=== PATIENT | male | born 1965 | race American Indian/Alaskan Native ===

== ENCOUNTER 2018-11-01 14:39 | Outpatient (CLI) | payer OTHER ==
--- NOTE | 2018-11-01 15:52 | XRay Report ---
ABDOMEN TWO VIEWS: 11/01/18 15:12 CLINICAL: Abdominal pain. COMPARISON:None. FINDINGS: Supine upright views demonstrate a normal bowel gas pattern with moderate stool in the right colon. No distended bowel and no air-fluid levels. No suspicious abdominal calcifications. Several left pelvic calcifications are probably phleboliths but a distal ureteral calculus cannot be excluded. This The bones and soft tissues are normal. IMPRESSION: Negative abdomen. Recommend CT abdomen and pelvis with stone protocol if clinically suspect ureteral calculus.
--- NOTE | 2018-11-01 15:54 | XRay Report ---
XRAY LEFT SHOULDER THREE VIEWS: 11/01/18 14:39:00 CLINICAL: Pain FINDINGS: No fracture or dislocation. Normal glenohumeral joint. Normal AC joint. No bone lesion. The soft tissues are normal. IMPRESSION: Normal.
== END 2018-11-01 14:40 | disposition home or self-care (01) ==
LOC: XRAY 14:39
PROVIDERS: ATTEND Family Medicine
DX: M25.512 Pain in left shoulder (principal); R10.9 Unspecified abdominal pain
CPT/HCPCS: 74019

== ENCOUNTER 2019-04-30 13:42 | Emergency (ER) | payer OTHER ==
[2019-04-30 14:10] VITALS: BP 141/83
--- NOTE | 2019-04-30 14:12 | Emergency Department Report ---
Blank Doc - Documentation Documentation: 54 y o male presents with upper abd pain non radiating x 2 days admits nausea and diarrhea ua,labs
[2019-04-30] MEDS ORDERED: ZOFRAN IV ONE (14:39)
[2019-04-30] MEDS ORDERED: PEPCID IV ONE (14:39)
[2019-04-30] MEDS ORDERED: NACL 0.9% 1000 ML 1,000 ML IV ONE (14:39)
[2019-04-30 14:59] LABS: Basophils # (Auto) 0.1 K/mm3 (0.0-0.1); Basophils % (Auto) 0.8 % (0.0-1.8); Eosinophils # (Auto) 0.3 K/mm3 (0.0-0.4); Eosinophils % (Auto) 4.1 % (0.0-4.3); Hemoglobin 14.2 gm/dl (11.8-15.2); Lymphocytes # (Auto) 2.1 K/mm3 (1.2-5.4); Lymphocytes % (Auto) 28.2 % (13.4-35.0); Mean Corpuscular HGB Conc 34 % (32-34); Mean Corpuscular Volume 92 fl (84-94); Monocytes # (Auto) 0.7 K/mm3 (0.0-0.8); Platelet Count 243 K/mm3 (140-440); Red Blood Count 4.59 M/mm3 (3.65-5.03); Red Cell Distribution Width 14.2 % (13.2-15.2)
[2019-04-30 15:26] LABS: Bilirubin,Urine NEG (Negative); Blood,Urine NEG (Negative); Color,Urine Yellow (Yellow); Mucus,Urine FEW /HPF; Protein,Urine <15 mg/dL mg/dL (Negative); Urobilinogen,Urine < 2.0 mg/dL (<2.0); WBC,Urine < 1.0 /HPF (0.0-6.0)
[2019-04-30 15:52] LABS: BUN/Creatinine Ratio 14; Blood Urea Nitrogen 14 mg/dL (9-20); Calcium 8.5 mg/dL (8.4-10.2); Hemolysis Index 24
--- NOTE | 2019-04-30 16:34 | Emergency Department Report ---
Vomiting/Diarrhea - HPI Chief Complaint: Abdominal Pain Stated Complaint: ABDOMINAL PAIN/NAUSEA Time Seen by Provider: 04/30/19 14:10 Duration: 2 Days Severity: moderate Nausea/Vomiting Severity: Mild Diarrhea Severity: Severe (approx 8 times today) Pain Location: Epigastric Pain Severity: Mild Symptoms: Yes Watery Diarrhea, Yes Able to Tolerate Fluids, No Bloody diarrhea, No Fever, No Recent Untreated Water, No Recent use of Antibiotics, No Family w/ Similar Symptoms, No Contacts w/ Similar Symptoms, No Rash, No Hematuria, No Recent URI Symptoms Other History: mild dizziness with standing ED Review of Systems ROS: Stated complaint: ABDOMINAL PAIN/NAUSEA Other details as noted in HPI Comment: All other systems reviewed and negative ED Past Medical Hx - Past Medical History Previous Medical History?: Yes Additional medical history: high cholesterol - Surgical History Past Surgical History?: No - Social History Smoking Status: Never Smoker Substance Use Type: None - Medications Home Medications: Home Medications Medication Instructions Recorded Confirmed Last Taken Type Dicyclomine [Bentyl] 20 mg PO QID #10 tablet 04/30/19 Unknown Rx Diphenoxylate/Atropine [Lomotil] 1 tab PO Q4H PRN #10 tablet 04/30/19 Unknown Rx Famotidine [Pepcid] 40 mg PO QHS #10 tablet 04/30/19 Unknown Rx Ondansetron [Zofran Odt] 4 mg PO Q8HR #10 tab.rapdis 04/30/19 Unknown Rx Vomiting Diarrhea Exam - Exam General: Vital signs noted. No distress. Alert and acting appropriately. HEENT: Yes Moist Mucous Membranes, No Pharyngeal Erythema, No Pharyngeal Exudates, No Rhinorrhea, No Conjuctival Injection, No Frontal Tenderness, No Maxillary Tenderness Neck: No Adenopathy, No Rigidity Lungs: Yes Clear Lung Sounds, Yes Good Air Exchange, No Wheezes, No Stridor, No Cough, No Nasal Flaring, No Retractions, No Use of Accessory Muscles Heart exam: Regular: Yes, Murmur: No, Tachycardia: No Abdomen: Tenderness: No, Peritoneal Signs: No, Distention: No, Hyperactive Bowel sounds: No Skin exam: Rash: No, Edema: No, Normal turgor: Yes Neurologic: Alert and oriented, no deficits. Musculoskeletal: Unremarkable. ED Course Vital Signs 04/30/19 14:08 Temperature 98.2 F Pulse Rate 89 Respiratory 18 Rate Blood Pressure 141/83 O2 Sat by Pulse 99 Oximetry ED Medical Decision Making - Lab Data Result diagrams: 04/30/19 14:30 04/30/19 15:10 - Medical Decision Making Assessment hydrated and feeling improved. Patient be discharged home with medications for symptomatic relief. Patient likely with viral gastroenteritis. Critical care attestation.: If time is entered above; I have spent that time in minutes in the direct care of this critically ill patient, excluding procedure time. ED Disposition Clinical Impression: Viral gastroenteritis, Mild dehydration Disposition: DC-01 TO HOME OR SELFCARE Is pt being admited?: No Does the pt Need Aspirin: No Condition: Stable Instructions: Gastroenteritis (ED), Dehydration (ED) Referrals: MELISSA ROBERTS MD [Primary Care Provider] - 3-5 Days Time of Disposition: 16:34
== END 2019-04-30 16:52 | disposition home or self-care (01) ==
LOC: ED 13:42
DX: A08.4 Viral intestinal infection, unspecified (principal); E86.0 Dehydration; E78.00 Pure hypercholesterolemia, unspecified
CPT/HCPCS: 36415; 80048; 81001; 83690; 85025; 96361; 96374; 96375; 99283; J2405; J7030

== ENCOUNTER 2019-09-28 10:59 | Emergency (ER) | payer SELFPAY ==
[2019-09-28 11:16] VITALS: BP 127/84
--- NOTE | 2019-09-28 11:22 | Event Note ---
ED Screening Note ED Screening Note: 54 y/o male comes in for left neck pain times 2 day. Denies any injury. Has felt nauseate. Pain worst with lifting shoulder. This initial assessment/diagnostic orders/clinical plan/treatment(s) is/are subject to change based on patients health status, clinical progression and re- assessment by fellow clinical providers in the ED. Further treatment and workup at subsequent clinical providers discretion. Patient/guardian urged not to elope from the ED as their condition may be serious if not clinically assessed and managed. Initial orders include:
--- NOTE | 2019-09-28 11:44 | XRay Report ---
Left shoulder-3 views INDICATION: shoulder pain. COMPARISON: None. IMPRESSION: No acute osseous or soft tissue abnormality. No significant DJD. Signer Name: Jonathan Cavazos MD Signed: 09/28/2019 11:40 AM Workstation Name: [id number]
--- NOTE | 2019-09-28 12:09 | Emergency Department Report ---
Chief Complaint: Neck Pain/Injury Stated Complaint: LT ARM/NECK PAIN Time Seen by Provider: 09/28/19 11:13 - HPI History of Present Illness: Mr. Pitts is a 54 yo male with hx of dyslipidemia who awakened 2 days ago with left-sided neck pain and left arm pain. Pain is worse with movement of the neck. Pain is worse with movement on the left arm. I suspect cervical radiculopathy. He has intact strength in the left upper extremity. Medical screening exam performed. I reviewed left shoulder results: No DJD. No acute process. Referred to orthopedic surgeon. - Exam Vital Signs: Vital Signs 09/28/19 11:13 Temperature 98.5 F Pulse Rate 96 H Respiratory 18 Rate Blood Pressure 127/84 O2 Sat by Pulse 97 Oximetry MSE screening note: Focused history and physical exam performed. Due to findings the following was ordered: ED Disposition for MSE Clinical Impression: Encounter for medical screening examination Disposition: MED SCREENING EXAM-LEFT Is pt being admited?: No Does the pt Need Aspirin: No Condition: Stable Referrals: KARINA DE LA ROSA MD [Staff Physician] - 3-5 Days
== END 2019-09-28 14:24 | disposition left against medical advice (07) ==
LOC: ED 10:59
DX: M54.2 Cervicalgia (principal); Z53.21 Procedure and treatment not carried out due to patient leaving prior to being seen by health care provider